=== PATIENT | male | born 1985 | race American Indian/Alaskan Native ===

== ENCOUNTER 2018-10-17 20:22 | Emergency (ER) | payer OTHER ==
--- NOTE | 2018-10-17 21:36 | Emergency Department Report ---
Blank Doc - Documentation Documentation: 32 y/o male no pmh with abd pain started yesterday. no bm 1 week.
--- NOTE | 2018-10-17 22:27 | XRay Report ---
PROCEDURE: XR ABDOMEN 1V AP TECHNIQUE: Abdominal radiograph, single view. HISTORY: abd no bm in 1 week. COMPARISONS: None . FINDINGS: Bowel gas pattern: Nonobstructive . Masses or calcifications: None . Bony structures: No significant abnormality . Other: None . IMPRESSION: No acute abnormality. This document is electronically signed by Rashel Reveles MD., October 17 2018 10:25:19 PM ET
[2018-10-18 01:34] VITALS: BP 146/105
--- NOTE | 2018-10-18 04:00 | Emergency Department Report ---
Chief Complaint: Abdominal Pain Stated Complaint: LOWER ABD SHOOTING BACK PAIN Time Seen by Provider: 10/17/18 21:29 - HPI History of Present Illness: Pt presents to the ED with c/o right flank pain that radiates to the RLQ that began 3 days ago. The patient has associated nausea. He denies any fever, emesis, dysuria, urinary frequency. the patient denies every having this previously and denies any hx of nephrolithiasis. He states he has not had a BM in the last week. Has not taken anything for constipation or for pain. he denies any prior abd surgeries. - Exam Vital Signs: Vital Signs 10/17/18 10/17/18 10/18/18 20:45 21:29 01:30 Temperature 98.2 F 98.2 F 97.6 F Pulse Rate 66 61 59 L Respiratory 18 18 16 Rate Blood Pressure 143/91 143/91 146/105 O2 Sat by Pulse 99 99 100 Oximetry MSE screening note: Focused history and physical exam performed. Due to findings the following was ordered: will order labs, CT abd/pelvis without contrast to r/o nephrolithiasis further evaluation and management by ROSALIA Urias ED Disposition for MSE Referrals: BRENTON DIGGS MD [Primary Care Provider] - 3-5 Days
--- NOTE | 2018-10-18 04:27 | Cat Scan Report ---
PROCEDURE: CT ABDOMEN PELVIS WO CON TECHNIQUE: Routine axial imaging was obtained of the abdomen and pelvis without oral or IV contrast. Sagittal reconstructions reviewed. HISTORY: right flank radiating to RLQ COMPARISONS: None FINDINGS: The lung bases are clear. Pleural fluid is not seen. The liver, gallbladder, biliary tree, pancreas, spleen, and adrenal glands appear normal. The kidneys show no evidence of stones or hydronephrosis. The bowel loops are normal in caliber and course. The appendix appears normal. There is no evidence of any inflammatory process in the right lower quadrant . There is no evidence of free fluid or adenopathy. In the pelvis the prostate gland is normal in siz e and contains calcifications. The bladder appears normal. The skeletal structures are well-maintaine d. IMPRESSION: No acute process in the abdomen and pelvis. No evidence of renal stones or hydronephrosis. Normal appendix.. This document is electronically signed by Saran Fofana MD., October 18 2018 04:24:45 AM ET
[2018-10-18 04:56] LABS: Basophils % (Auto) 0.5 % (0.0-1.8); Eosinophils # (Auto) 0.2 K/mm3 (0.0-0.4); Eosinophils % (Auto) 3.5 % (0.0-4.3); Hematocrit 40.8 % (35.5-45.6); Hemoglobin 13.3 gm/dl (11.8-15.2); Lymphocytes # (Auto) 2.6 K/mm3 (1.2-5.4); Lymphocytes % (Auto) 37.5 % (13.4-35.0); Mean Corpuscular HGB Conc 33 % (32-34); Mean Corpuscular Volume 83 fl (84-94); Monocytes # (Auto) 0.6 K/mm3 (0.0-0.8); Monocytes % (Auto) 8.2 % (0.0-7.3); Platelet Count 277 K/mm3 (140-440); Red Blood Count 4.94 M/mm3 (3.65-5.03); Red Cell Distribution Width 15.3 % (13.2-15.2)
[2018-10-18 05:11] LABS: Bilirubin,Urine NEG (Negative); Blood,Urine NEG (Negative); Color,Urine Yellow (Yellow); Mucus,Urine FEW /HPF; Protein,Urine <15 mg/dL mg/dL (Negative); Urobilinogen,Urine < 2.0 mg/dL (<2.0); WBC,Urine < 1.0 /HPF (0.0-6.0)
[2018-10-18 05:18] LABS: Alanine Aminotransferase 9 units/L (7-56); Albumin 4.3 g/dL (3.9-5); BUN/Creatinine Ratio 8; Blood Urea Nitrogen 9 mg/dL (9-20); Calcium 9.5 mg/dL (8.4-10.2); Hemolysis Index 4
--- NOTE | 2018-10-18 06:01 | Emergency Department Report ---
ED Abdominal Pain HPI - General Chief Complaint: Abdominal Pain Stated Complaint: LOWER ABD SHOOTING BACK PAIN Time Seen by Provider: 10/17/18 21:29 Source: patient Mode of arrival: Ambulatory Limitations: No Limitations - History of Present Illness Initial Comments: Pt presents to the ED with c/o right flank pain that radiates to the RLQ that began 3 days ago. The patient has associated nausea. He denies any fever, emesis, dysuria, urinary frequency. the patient denies every having this previously and denies any hx of nephrolithiasis. He states he has not had a BM in the last week. Has not taken anything for constipation or for pain. he denies any prior abd surgeries. MD Complaint: abdominal pain Location: RLQ Migration to: no migration Severity: moderate Severity scale (0 -10): 7 Consistency: intermittent Improves With: nothing Worsens With: nothing - Related Data Previous Rx's Medication Instructions Recorded Last Taken Type Polyethylene Glycol 3350 [Miralax] 17 gm PO QDAY #119 gram 10/18/18 Unknown Rx Allergies Allergy/AdvReac Type Severity Reaction Status Date / Time Penicillins Allergy Hives Verified 10/17/18 20:32 ED Review of Systems ROS: Stated complaint: LOWER ABD SHOOTING BACK PAIN Other details as noted in HPI ED Past Medical Hx - Past Medical History Previous Medical History?: No - Surgical History Past Surgical History?: No - Social History Smoking Status: Never Smoker Substance Use Type: None - Medications Home Medications: Home Medications Medication Instructions Recorded Confirmed Last Taken Type Polyethylene Glycol 3350 [Miralax] 17 gm PO QDAY #119 gram 10/18/18 Unknown Rx ED Physical Exam - General Limitations: No Limitations General appearance: alert, in no apparent distress - Head Head exam: Present: atraumatic, normocephalic - Eye Eye exam: Present: normal appearance - ENT ENT exam: Present: mucous membranes moist - Neck Neck exam: Present: normal inspection - Respiratory Respiratory exam: Present: normal lung sounds bilaterally. Absent: respiratory distress - Cardiovascular Cardiovascular Exam: Present: regular rate, normal rhythm. Absent: systolic murmur, diastolic murmur, rubs, gallop - GI/Abdominal GI/Abdominal exam: Present: soft, normal bowel sounds. Absent: distended, tenderness - Back Exam Back exam: Present: normal inspection - Neurological Exam Neurological exam: Present: alert, oriented X3, normal gait - Psychiatric Psychiatric exam: Present: normal affect, normal mood - Skin Skin exam: Present: warm, dry, intact, normal color. Absent: rash ED Course Vital Signs 10/17/18 10/17/18 10/18/18 20:45 21:29 01:30 Temperature 98.2 F 98.2 F 97.6 F Pulse Rate 66 61 59 L Respiratory 18 18 16 Rate Blood Pressure 143/91 143/91 146/105 O2 Sat by Pulse 99 99 100 Oximetry 10/18/18 07:02 Temperature Pulse Rate 79 Respiratory 16 Rate Blood Pressure O2 Sat by Pulse 100 Oximetry ED Medical Decision Making - Lab Data Result diagrams: 10/18/18 04:15 10/18/18 04:15 - Radiology Data Radiology results: report reviewed Patient: CHRIS ZARCO MR#: [id number] : 1985 Acct:[id number] Age/Sex: 32 / M ADM Date: 10/17/18 Loc: ED Attending Dr: Ordering Physician: ROSALIA CASTILLO Date of Service: 10/17/18 Procedure(s): XR abdomen 1V ap Accession Number(s): [id number] cc: ROSALIA CASTILLO Fluoro Time In Minutes: PROCEDURE: XR ABDOMEN 1V AP TECHNIQUE: Abdominal radiograph, single view. HISTORY: abd no bm in 1 week. COMPARISONS: None . FINDINGS: Bowel gas pattern: Nonobstructive . Masses or calcifications: None . Bony structures: No significant abnormality . Other: None . IMPRESSION: No acute abnormality. This document is electronically signed by Christ Reveles MD., October 17 2018 10:25:19 PM ET Transcribed By: [facility] [place] Dictated By: CHRIST REVELES Electronically Authenticated By: CHRIST REVELES Signed Date/Time: 10/17/182226 DD/ 06 TD/TT: 10/17/182206 Patient: CHRIS ZARCO MR#: [id number] : 1985 Acct:[id number] Age/Sex: 32 / M ADM Date: 10/17/18 Loc: ED Attending Dr: Ordering Physician: ROSALIA MAYORGA Date of Service: 10/18/18 Procedure(s): CT abdomen pelvis wo con Accession Number(s): [id number] cc: ROSALIA MAYORGA PROCEDURE: CT ABDOMEN PELVIS WO CON TECHNIQUE: Routine axial imaging was obtained of the abdomen and pelvis without oral or IV contrast. Sagittal reconstructions reviewed. HISTORY: right flank radiating to RLQ COMPARISONS: None FINDINGS: The lung bases are clear. Pleural fluid is not seen. The liver, gallbladder, biliary tree, pancreas, spleen, and adrenal glands appear normal. The kidneys show no evidence of stones or hydronephrosis. The bowel loops are normal in caliber and course. The appendix appears normal. There is no evidence of any inflammatory process in the right lower quadrant. There is no evidence of free fluid or adenopathy. In the pelvis the prostate gland is normal in size and contains calcifications. The bladder appears normal. The skeletal structures are well-maintained. IMPRESSION: No acute process in the abdomen and pelvis. No evidence of renal stones or hydronephrosis. Normal appendix.. This document is electronically signed by Ellen Fofana MD., October 18 2018 0 4:24:45 AM ET Transcribed By: RB Dictated By: ELLEN FOFANA MD Electronically Authenticated By: ELLEN FOFANA MD Signed Date/Time: 10/18/18426 DD/ 0354 TD/TT: 10/18/18 042 - Medical Decision Making Patient has been evaluated by this provider in [facility]. Patient's had a KUB, CT of abdomen shows normal examination. Patient be given ibuprofen 600 mg. Discussed the patient to take Colace or MiraLAX daily to help get his bowels moving. Patient continue with Tylenol and/or Motrin for pain relief. Patient is to follow the primary care provider if symptoms persist or gets worse. Critical care attestation.: If time is entered above; I have spent that time in minutes in the direct care of this critically ill patient, excluding procedure time. ED Disposition Clinical Impression: Pain, abdominal, nonspecific Disposition: DC-01 TO HOME OR SELFCARE Is pt being admited?: No Does the pt Need Aspirin: No Condition: Stable Additional Instructions: Please take MiraLAX as prescribed. Follow up with a primary care provider if her symptoms persist or gets worse. Prescriptions: Polyethylene Glycol 3350 [Miralax] 17 gm PO QDAY #119 gram Referrals: BRENTON DIGGS MD [Primary Care Provider] - 3-5 Days Forms: Work/School Release Form(ED)
[2018-10-18] MEDS ORDERED: IBUPROFEN PO ONE (06:17)
== END 2018-10-18 07:02 | disposition home or self-care (01) ==
LOC: ED 20:22
DX: R10.31 Right lower quadrant pain (principal); R11.0 Nausea; Z88.0 Allergy status to penicillin
CPT/HCPCS: 36415; 74018; 74176; 80053; 81001; 83690; 85025